=== PATIENT | female | born 1985 | race Caucasian/White ===

== ENCOUNTER 2021-07-04 16:02 | Emergency (ER) | payer OTHER ==
[~2021-07-04] VITALS: Ht 165.1 cm; Wt 95.5 kg
[2021-07-04 16:29] VITALS: TEMP 98.2
[2021-07-04] MEDS ORDERED: PRENATAL TABLET PO (17:10)
[2021-07-04] MEDS ORDERED: ASPIRIN 81M81 MG/TA2 PO (17:10)
[2021-07-04 17:30] VITALS: BP 139/89; PULSE 104
[2021-07-04 17:42] VITALS: BP 140/86; PULSE 102
[2021-07-04 19:10] LABS: HEMOGLOBIN 10.3 g/dl (12.5-16.0); MEAN CELL VOLUME 86 fl (80.0-100.0); MEAN CORPUSCULAR HEMOGLOBIN 28 pg (27-31); MEAN CORPUSCULAR HGB CONC 32 g/dl (33.0-37.0); MEAN PLATELET VOLUME 9.9 fl (7.4-10.4); PLATELET COUNT 301 K/mm3 (130-400); RED BLOOD COUNT 3.75 M/mm3 (4.10-5.30); REDCELL DISTRIBUTION WIDTH-CV 14.4 % (11.5-14.5)
[2021-07-04 19:17] LABS: HEMATOCRIT 32.2 % (37.0-47.0)
[2021-07-04 19:20] LABS: ALBUMIN 2.8 gm/dL (3.5-5.0); BILIRUBIN,TOTAL 0.2 mg/dL (0.2-1.2); CALCIUM 8.8 mg/dL (8.4-10.2); CREATININE, serum 0.6 mg/dL (0.57-1.11); POTASSIUM 3.9 mmol/L (3.5-4.5); TOTAL PROTEIN 6.8 gm/dL (6.2-8.1)
[2021-07-04 19:35] LABS: TROPONIN-I 0.04 ng/mL (0.00-0.033)
[2021-07-04 19:37] LABS: COLLECTION METHOD CLEAN CATCH
[2021-07-04 20:03] LABS: MUCOUS Present (NOT PRESENT); PH 6 (5-8); SQUAMOUS EPITHELIAL 0-2 /hpf (0-10); URINE APPEARANCE Clear (CLEAR/HAZY); URINE BACTERIA Rare /hpf (NONE SEEN); URINE BILIRUBIN Negative (NEGATIVE); URINE BLOOD Negative (NEGATIVE); URINE COLOR Yellow (YELLOW); URINE GLUCOSE Negative (NEGATIVE); URINE KETONE Negative (NEGATIVE); URINE LEUKOCYTE ESTERASE Negative (NEGATIVE); URINE NITRATE Negative (NEGATIVE); URINE PROTEIN(semi-quant) Negative (NEGATIVE); URINE RBC 0-2 /hpf (0-2); URINE UROBILINOGEN Negative (NEGATIVE)
[2021-07-04 20:34] LABS: LYMPHOCYTE 17 % (20.0-51.0); NEUTROPHILS 78 % (42.0-75.2)
[2021-07-04 20:35] LABS: HYPOCHROMIA 1+
[2021-07-04 22:20] VITALS: BP 145/78; PULSE 76
== END 2021-07-04 22:20 | disposition home or self-care (01) ==
LOC: COL.ER 16:02 → LDR 18:20 → COL.ER 22:20
PROVIDERS: Physician Assistant
DX: O99.412 Diseases of the circulatory system complicating pregnancy, second trimester (principal); I47.9 Paroxysmal tachycardia, unspecified; Z3A.27 27 weeks gestation of pregnancy
CPT/HCPCS: J7030

== ENCOUNTER 2021-07-04 18:32 | Outpatient (CLI) | payer OTHER ==
[~2021-07-04] VITALS: Ht 165.1 cm; Wt 95.5 kg
[2021-07-04 17:30] VITALS: BP 139/89; PULSE 104
[2021-07-04 17:42] VITALS: BP 140/86; PULSE 102
--- NOTE | 2021-07-04 17:55 | NUR ---
Plan of care discussed with patient. Transferred to ER via wheelchair to room 18.
[~2021-07-04 18:32] MED LIST: ASPIRIN 81M81 MG/TA2 PO; PRENATAL TABLET PO
== END 2021-07-04 18:33 | disposition home or self-care (01) ==
LOC: LDRO 18:32
DX: O26.899 Other specified pregnancy related conditions, unspecified trimester (principal); R42 Dizziness and giddiness; R00.0 Tachycardia, unspecified; Z3A.27 27 weeks gestation of pregnancy

== ENCOUNTER → 2021-07-14 | Outpatient (CLI) | payer OTHER | LOC: COL.CARD 13:00 | DX: Z01.810 Encounter for preprocedural cardiovascular examination (principal); I48.0 Paroxysmal atrial fibrillation ==

== ENCOUNTER 2021-09-18 16:05 | Inpatient (IN) | payer OTHER ==
[2021-09-18] VITALS (19 sets, daily range): BP systolic 105–154; BP diastolic 63–100; PULSE 81–102; TEMP 97.3–98.3
[~2021-09-18] VITALS: Ht 165.1 cm; Wt 106.6 kg
[~2021-09-18 16:05] MED LIST changes: +NEXIUM 20MG20 MG; +TOPROL XL 25MG25 MG; +ZOLOFT 100MG100 MG PO
[2021-09-18 17:12] LABS: HEMOGLOBIN 11.5 g/dl (12.5-16.0); MEAN CELL VOLUME 86 fl (80.0-100.0); MEAN CORPUSCULAR HEMOGLOBIN 28 pg (27-31); MEAN CORPUSCULAR HGB CONC 33 g/dl (33.0-37.0); PLATELET COUNT 324 K/mm3 (130-400); REDCELL DISTRIBUTION WIDTH-CV 15.1 % (11.5-14.5)
[2021-09-18 17:17] LABS: HEMATOCRIT 35.2 % (37.0-47.0)
[2021-09-18 18:41] LABS: ALBUMIN 2.4 gm/dL (3.5-5.0); ALKALINE PHOSPHATASE 112 U/L (40-150); ANION GAP 10 mmol/L (7-16); AST,SGOT 16 U/L (5-34); BILIRUBIN,TOTAL 0.2 mg/dL (0.2-1.2); BLOOD UREA NITROGEN 11 mg/dL (7-19); CALCIUM 8.7 mg/dL (8.4-10.2); CARBON DIOXIDE 20 mmol/L (22-29); CHLORIDE 106 mmol/L (98-107); CREATININE, serum 0.59 mg/dL (0.57-1.11); GLUCOSE 90 mg/dL (70-99); POTASSIUM 4.2 mmol/L (3.5-4.5); SODIUM 136 mmol/L (136-145)
[2021-09-18 18:42] LABS: ALANINE AMINOTRANSFERASE < 6 U/L (0-55)
[2021-09-18 19:03] LABS: BAND 4 % (0-10); LYMPHOCYTE 14 % (20.0-51.0); METAMYELOCYTE 1 % (0-0); MYELOCYTE 1 % (0-0); NEUTROPHILS 75 % (42.0-75.2)
[2021-09-18 19:05] LABS: PLATELET ESTIMATE NORMAL (NORMAL)
[2021-09-19 03:45] VITALS: BP 131/74; PULSE 87; TEMP 98.5
[2021-09-19 06:30] VITALS: BP 144/88; PULSE 89; TEMP 97.3
[2021-09-19 07:51] LABS: BASO % 0.3 % (0.0-2.0); EOS # 0.1 K/mm3 (0.0-0.7); EOS % 0.5 % (0.0-4.0); GRAN # 10.5 K/mm3 (1.4-6.5); GRAN % 80.5 % (42.2-75.2); HEMOGLOBIN 10.1 g/dl (12.5-16.0); LYMPH # 1.2 K/mm3 (1.2-3.4); LYMPH % 9.2 % (20.0-51.0); MEAN CELL VOLUME 85 fl (80.0-100.0); MEAN CORPUSCULAR HEMOGLOBIN 28 pg (27-31); MEAN CORPUSCULAR HGB CONC 33 g/dl (33.0-37.0); MONO # 1.1 K/mm3 (0.1-0.6); MONO % 8.4 % (1.7-9.3); PLATELET COUNT 247 K/mm3 (130-400); RED BLOOD COUNT 3.59 M/mm3 (4.10-5.30); REDCELL DISTRIBUTION WIDTH-CV 15.1 % (11.5-14.5)
[2021-09-19 07:57] LABS: HEMATOCRIT 30.6 % (37.0-47.0)
[2021-09-19 08:09] LABS: ALBUMIN 2.4 gm/dL (3.5-5.0); BILIRUBIN,TOTAL 0.5 mg/dL (0.2-1.2); CALCIUM 8.9 mg/dL (8.4-10.2); CREATININE, serum 0.63 mg/dL (0.57-1.11); POTASSIUM 4.4 mmol/L (3.5-4.5); TOTAL PROTEIN 5.8 gm/dL (6.2-8.1)
[2021-09-19 12:15] VITALS: BP 145/83; PULSE 93; TEMP 98
--- NOTE | 2021-09-19 12:15 | NUR ---
Rests in bed, alert. Percocet 7/325 mg one given per request and as ordered.
--- NOTE | 2021-09-19 13:50 | NUR ---
[employer] Operator stopped by to congratulate patient while family was in room.
--- NOTE | 2021-09-19 15:45 | NUR ---
Calls out and says having right shoulder pain. K-pad on.
[2021-09-19 16:30] VITALS: BP 156/85; PULSE 84; TEMP 97.9
--- NOTE | 2021-09-19 16:45 | NUR ---
Up moving around, states passing some gas. Percocet 7/325 mg given per request and as ordered.
[2021-09-19 19:30] VITALS: BP 148/85; PULSE 94; TEMP 98.6
[2021-09-20 06:30] VITALS: BP 144/82; PULSE 76; TEMP 97.9
--- NOTE | 2021-09-20 06:30 | NUR ---
Rests in bed, alert. Percocet 7/325 mg one given per request and as ordered. Ambulates to the bathroom.
[2021-09-20 12:00] VITALS: BP 137/81; PULSE 88; TEMP 97.8
[2021-09-20 16:38] VITALS: BP 139/81; PULSE 94; TEMP 97.9
[2021-09-20 20:55] VITALS: BP 142/76; PULSE 90; TEMP 97.6
[2021-09-21 07:30] VITALS: BP 151/88; PULSE 104; TEMP 97.8
--- NOTE | 2021-09-21 10:16 | NUR ---
Initial visit; Patient thanked Senior Wealth Advisor for offering congratulations and God's blessings for the of her son. Senior Wealth Advisor thanked patient for choosing [facility].
[2021-09-21] MEDS ORDERED: IBU600 MG PO (10:19)
[2021-09-21] MEDS ORDERED: PERCOCET 325 MG1 TA3 PO (10:19)
[2021-09-21] MEDS ORDERED: ZOLOFT 50MG50 MG PO (10:19)
[2021-09-21] MEDS ORDERED: DERMACINRX PRE1 EACH PO (10:20)
== END 2021-09-21 16:45 | disposition home or self-care (01) | DRG 788 ==
LOC: OB 16:05
PROVIDERS: ADMIT Obstetrics & Gynecology
PROC: 10D00Z1 Extraction of Products of Conception, Low, Open Approach (ICD-10-PCS; principal; 2021-09-18)
DX: O13.4 Gestational [pregnancy-induced] hypertension without significant proteinuria, complicating childbirth (principal); O99.02 Anemia complicating childbirth; D64.9 Anemia, unspecified; O99.344 Other mental disorders complicating childbirth; F41.9 Anxiety disorder, unspecified; F32.A Depression, unspecified; O36.63X0 Maternal care for excessive fetal growth, third trimester, not applicable or unspecified; O99.892 Other specified diseases and conditions complicating childbirth; R00.0 Tachycardia, unspecified; O69.81X0 Labor and delivery complicated by cord around neck, without compression, not applicable or unspecified; Z3A.37 37 weeks gestation of pregnancy; Z37.0 Single live birth; Z23 Encounter for immunization
CPT/HCPCS: J0690; J1885; J2370; J2405; J2590; J7120

== ENCOUNTER 2022-02-01 17:30 | Emergency (ER) | payer OTHER ==
[~2022-02-01] VITALS: Ht 165.1 cm; Wt 95.5 kg
[~2022-02-01 17:30] MED LIST changes: +DERMACINRX PRE1 EACH PO; +IBU600 MG PO; +PERCOCET 325 MG1 TA3 PO; +ZOLOFT 50MG50 MG PO
[2022-02-01 17:38] VITALS: TEMP 98
[2022-02-01] MEDS ORDERED: BACTRIM DS 8001 TAB PO (19:18)
[2022-02-01 19:40] VITALS: BP 152/96; PULSE 79
== END 2022-02-01 19:42 | disposition home or self-care (01) ==
LOC: COL.ER 17:30
DX: S70.362A Insect bite (nonvenomous), left thigh, initial encounter (principal); Z28.311 Partially vaccinated for COVID-19; W57.XXXA Bitten or stung by nonvenomous insect and other nonvenomous arthropods, initial encounter